=== PATIENT | female | born 1995 | race Caucasian/White ===

== ENCOUNTER 2021-04-08 09:50 | Outpatient (CLI) | payer BC ==
[2021-04-08 18:46] LABS: SARS-CoV-2 PCR by NAA Not Detected (NotDetected)
== END 2021-04-08 09:51 | disposition home or self-care (01) ==
LOC: CSHLAB 09:50
PROVIDERS: ATTEND Obstetrics & Gynecology
DX: Z20.822 Contact with and (suspected) exposure to COVID-19 (principal)
CPT/HCPCS: U0003; U0005

== ENCOUNTER 2021-04-11 23:43 | Inpatient (IN) | payer BC ==
[~2021-04-11 23:43] MED LIST: Acetaminophen 500 MG TAB PO PRN; Butorphanol Tartrate 1 MG/ML VIAL SLOW IVP PRN; Carboprost 250 MCG/ML AMP IM PRN; Diphenoxylate HCl/Atropine Tablet PO PRN; Docusate 100 MG CAP PO PRN; HYDROcodone/Acetaminophen 5/325 mg Tablet PO PRN; Ibuprofen 800 MG TAB PO PRN; Lidocaine 1% (PF) 30 ML VIAL SC PRN; Methylergonovine 0.2 MG/ML VIAL IM PRN; Misoprostol 200 MCG TAB PR PRN; Ondansetron PF 4 MG/2 ML Vial IVP PRN; Promethazine HCl 25 MG/ML VIAL IM PRN; hydrALAZINE 20 MG/ML VIAL SLOW IVP PRN
[2021-04-11] MEDS ORDERED: NS w/ Oxytocin 30 units 500 ML IV SCH ×2 (23:45)
[2021-04-12] MEDS ORDERED: Lidocaine 2% MPF 10 ML AMP (For Epidural Use) ONE (06:00)
[2021-04-12] MEDS ORDERED: Bupivacaine 0.25% HCL 30 ML VIAL ONE (06:00)
[2021-04-12 07:04] VITALS: BMI 25.1
[2021-04-12 07:46] LABS: Hemoglobin 13.7 g/dL (12.0-15.5); Mean Corpuscular HGB CONC 35.6 g/dL (32.0-36.0); Mean Corpuscular Hemoglobin 31.1 pg (27.0-33.0); Mean Corpuscular Volume 87.5 fl (81.6-98.3); Mean Platelet Volume 13.3 fl (7.4-10.4); Platelet Count 103 10x3/uL (150-450); RBC Distribution Width 13.2 % (11.5-14.5); White Blood Cell (WBC) Count 6.6 10x3/uL (3.5-10.5)
[2021-04-12] MEDS: Misoprostol 100 MCG TAB VAG SCH ×3 (08:03→14:51)
[2021-04-12 08:12] LABS: Syphilis Antibody Nonreactive (Nonreactive); Syphilis Antibody Index 0.04 S/CO (<1.00 Non-Reactive)
[2021-04-12 08:13] LABS: Hep B Surf Ag Non-Reactive S/CO (NonReactive)
[2021-04-12 08:31] LABS: HBSAg Index 0.19 S/CO (0-0.99)
[2021-04-12] MEDS ORDERED: Misoprostol 200 MCG TAB PO PRN (20:07)
[2021-04-13] MEDS: Lactated Ringer's 1,000 ML IV SCH ×2 (14:00→18:34)
[2021-04-13] MEDS ORDERED: Fentanyl 2 mcg/Bup 0.1% Cadd 100 ML ONE (17:26)
[2021-04-13] MEDS ORDERED: Naloxone HCl 0.4 mg/ml Vial IVP PRN ×2 (18:21)
[2021-04-13] MEDS ORDERED: Promethazine HCl 25 MG/ML VIAL IM PRN ×2 (18:21→23:53)
[2021-04-13] MEDS ORDERED: Acetaminophen 325 MG TAB PO PRN (18:21)
[2021-04-13] MEDS ORDERED: Hydrocerin (Eucerin) Cream 120 gm Jar TOP PRN (18:21)
[2021-04-13] MEDS ORDERED: Ondansetron PF 4 MG/2 ML Vial IVP PRN ×2 (18:21→23:53)
[2021-04-13] MEDS ORDERED: Lactated Ringer's 500 ML IV PRN (18:21)
[2021-04-13] MEDS ORDERED: diphenhydrAMINE 50 MG/ML VIAL IVP PRN (18:21)
[2021-04-13] MEDS ORDERED: ePHEDrine Sulfate 50 MG/10 ML VIAL SLOW IVP PRN (18:21)
[2021-04-13] MEDS ORDERED: Communication Order-Pharmacy FS SCH (18:30)
[2021-04-13] MEDS ORDERED: Fentanyl 2 mcg/Bupivacaine 0.1% Cassette 100 ML EPIDURAL SCH (18:30)
[2021-04-13] MEDS ORDERED: Fentanyl 100 MCG/2 ML VIAL ONE (19:09)
[2021-04-13] MEDS ORDERED: Lidocaine 1% (PF) 30 ML VIAL ONE (21:12)
[2021-04-13] MEDS ORDERED: Lanolin Ointment 7 GM TUBE TOP PRN (23:53)
[2021-04-13] MEDS ORDERED: Zolpidem Tartrate 5 MG TAB PO PRN (23:53)
[2021-04-13] MEDS ORDERED: Benzocaine-Menthol 82.5 ML CAN TOP PRN (23:53)
[2021-04-13] MEDS ORDERED: Preparation H Ointment 28 GM TUBE PR PRN (23:53)
[2021-04-13] MEDS ORDERED: Bisacodyl 10 MG SUPP PR PRN (23:53)
[2021-04-13] MEDS ORDERED: Misoprostol 200 MCG TAB VAG PRN (23:53)
[2021-04-13] MEDS ORDERED: diphenhydrAMINE 25 MG CAP PO PRN (23:53)
[2021-04-13] MEDS ORDERED: NS w/ Oxytocin 30 units 500 ML IV SCH (23:53)
[2021-04-13] MEDS ORDERED: HYDROcodone/Acetaminophen 5/325 mg Tablet PO PRN (23:53)
[2021-04-13] MEDS ORDERED: Methylergonovine 0.2 MG TAB PO PRN (23:53)
[2021-04-13] MEDS ORDERED: Varicella virus, LIVE 0.5 ML VIAL SC ONE (23:53)
[2021-04-13] MEDS ORDERED: Boostrix 0.5 ML (Tdap) VIAL IM ONE (23:53)
[2021-04-13] MEDS ORDERED: Milk Of Magnesia 30 ML UDCUP PO PRN (23:53)
[2021-04-13] MEDS ORDERED: Measles/Mumps/Rubella 10 MCG/0.5 ML VIAL SC ONE (23:53)
[2021-04-13] MEDS ORDERED: hydrALAZINE 20 MG/ML VIAL SLOW IVP PRN (23:53)
[2021-04-14] MEDS ORDERED: Ibuprofen 800 MG TAB PO SCH (00:15)
[2021-04-14] MEDS: Misoprostol 100 MCG TAB VAG SCH (01:15)
[2021-04-14] MEDS: Lactated Ringer's 1,000 ML IV SCH ×2 (01:15→01:16)
[2021-04-14 04:38] LABS: Hemoglobin 13.4 g/dL (12.0-15.5); Mean Corpuscular HGB CONC 35.7 g/dL (32.0-36.0); Mean Corpuscular Hemoglobin 30.9 pg (27.0-33.0); Mean Corpuscular Volume 86.6 fl (81.6-98.3); Mean Platelet Volume 13.2 fl (7.4-10.4); Platelet Count 92 10x3/uL (150-450); RBC Distribution Width 13.2 % (11.5-14.5); Red Blood Cell (RBC) Count 4.33 10x6/uL (3.90-5.03); White Blood Cell (WBC) Count 12.8 10x3/uL (3.5-10.5)
[2021-04-14] MEDS: Ibuprofen 800 MG TAB PO SCH ×3 (05:58→21:35)
[2021-04-14] MEDS: Ferrous Sulfate 325 MG TAB PO SCH ×2 (08:10→19:31)
[2021-04-14] MEDS: Prenatal Vitamin 1 TAB PO SCH (10:01)
[2021-04-14] MEDS: Docusate 100 MG CAP PO SCH ×2 (10:01→21:34)
[2021-04-15] MEDS: Ibuprofen 800 MG TAB PO SCH ×2 (05:22→13:39)
[2021-04-15] MEDS: Ferrous Sulfate 325 MG TAB PO SCH (07:17)
[2021-04-15] MEDS: Misoprostol 100 MCG TAB VAG SCH (07:18)
[2021-04-15] MEDS: Lactated Ringer's 1,000 ML IV SCH (07:19)
[2021-04-15 07:52] VITALS: BP 107/69; TEMP 97.8
[2021-04-15] MEDS: Prenatal Vitamin 1 TAB PO SCH (08:12)
[2021-04-15] MEDS: Docusate 100 MG CAP PO SCH (08:12)
== END 2021-04-15 19:05 | disposition home or self-care (01) | DRG 807 ==
LOC: CSHLD 23:43 → UNDOADMIN 04-12 05:33 → CSHPP 04-14 01:08
PROVIDERS: ADMIT Obstetrics & Gynecology; ATTEND Obstetrics & Gynecology
PROC: 10E0XZZ Delivery of Products of Conception, External Approach (ICD-10-PCS; principal; 2021-04-13)
PROC: 0KQM0ZZ Repair Perineum Muscle, Open Approach (ICD-10-PCS; 2021-04-13)
PROC: 10907ZC Drainage of Amniotic Fluid, Therapeutic from Products of Conception, Via Natural or Artificial Opening (ICD-10-PCS; 2021-04-13)
PROC: 3E033VJ Introduction of Other Hormone into Peripheral Vein, Percutaneous Approach (ICD-10-PCS; 2021-04-13)
PROC: 3E0P7VZ Introduction of Hormone into Female Reproductive, Via Natural or Artificial Opening (ICD-10-PCS; 2021-04-13)
DX: O70.1 Second degree perineal laceration during delivery (principal); Z37.0 Single live birth; Z3A.39 39 weeks gestation of pregnancy
CPT/HCPCS: 36415; 51702; 85027; 86780; 86850; 86900; 86901; 87340; J0595; J2405; J2590; J7120; S0020